=== PATIENT | female | born 1955 | race Two or more races ===

== ENCOUNTER 2023-10-01 21:58 | Emergency (ER) | payer OTHER ==
[~2023-10-01] VITALS: Ht 157.5 cm; Wt 72.6 kg
[2023-10-01] MEDS ORDERED: COZAAR50 MG PO (22:07)
[2023-10-01] MEDS ORDERED: ONDANSETRON HCL 2 MG/ML VIAL IV ONE (23:15)
[2023-10-01] MEDS ORDERED: ASPIRIN 325 MG TABLET PO ONE (23:45)
[2023-10-02] MEDS ORDERED: MORPHINE SULFATE 4 MG/ML VIAL IV ONE (00:30)
[2023-10-02] MEDS ORDERED: TRAMADOL HCL 50 MG TABLET PO STA (04:11)
[2023-10-02] MEDS ORDERED: MORPHINE SULFATE 4 MG/ML VIAL IV STA (04:54)
== END 2023-10-02 11:46 | disposition home or self-care (01) ==
LOC: ER 21:58
DX: S52.592A Other fractures of lower end of left radius, initial encounter for closed fracture (principal); S82.209A Unspecified fracture of shaft of unspecified tibia, initial encounter for closed fracture; W19.XXXA Unspecified fall, initial encounter; Y93.89 Activity, other specified; Y92.89 Other specified places as the place of occurrence of the external cause; Y99.8 Other external cause status; Z88.5 Allergy status to narcotic agent; Z88.6 Allergy status to analgesic agent